=== PATIENT | female | born 1980 | race Caucasian/White ===

== ENCOUNTER 2024-02-05 15:39 | Emergency (ER) | payer OTHER, SELFPAY ==
--- NOTE | ~2024-02-05 | XR_ITS ---
EXAMINATION: XR CHEST CLINICAL INFORMATION: Chest pain and palpitations. COMPARISON: None available. TECHNIQUE: 2 views of the chest were obtained. FINDINGS: No significant abnormality is noted involving the heart, lungs, mediastinum, bony thorax or soft tissues. XR/XR chest 2V IMPRESSION: Unremarkable examination.
--- NOTE | 2024-02-05 15:42 | ECG_ITS ---
Test Reason : CHEST PAIN Blood Pressure : / mmHG Vent. Rate : 092 BPM Atrial Rate : 092 BPM P-R Int : 148 ms QRS Dur : 070 ms QT Int : 344 ms P-R-T Axes : 057 040 017 degrees QTc Int : 425 ms Normal sinus rhythm Normal ECG No previous ECGs available Referred By: Iesha Murray Electronically Signed By:Pardeep Shipman
--- NOTE | 2024-02-05 16:02 | ED.GENADULT ---
HPI - General Adult General Chief complaint: Chest Pain Stated complaint: fell at work, palpitation's, chest pain Time Seen by Provider: 02/05/24 21:36 History of Present Illness HPI narrative: The patient is a 44-year-old woman who says that she has been having palpitations for the last 4 days. She says a month ago she had similar palpitations but they resolved on their own. She says that when she experiences the palpitations she feels dizzy and lightheaded. No definite chest pain. No definite shortness of breath. No pain or swelling in her legs. No nausea or vomiting. Related Data Allergies Allergy/AdvReac Type Severity Reaction Status Date / Time No Known Allergies Allergy Verified 02/05/24 15:42 Review of Systems Review of Systems: Yes all other systems are reviewed and are negative [facility] Social History Social History Smoked in Last 30 Days: No Advance Directives: No Advance Directives Information Provided: No Physical Exam ED Vital Signs: Vital Signs - 24 hr 02/05/24 16:04 02/05/24 21:39 Temperature 98.6 F 98.2 F Pulse Rate 86 86 Respiratory Rate 18 19 Blood Pressure 143/77 H 147/77 H Pulse Oximetry 100 99 Oxygen Delivery Method Room Air Room Air BMI result Body Mass Index 29.3 Const Other: The patient is awake, alert, pleasant, cooperative. She does not appear in distress at all. Eyes Other: Pupils are round equal, conjunctivae are clear, extraocular movements intact Neck Other: No JVD Resp Effort & Inspection: normal respiratory effort Auscultation: clear to auscultation bilaterally Cardio Rate: regular rate Rhythm: regular rhythm Heart sounds: S1 normal heart sound present and S2 normal heart sound present GI Other: Abdomen is soft and nontender Skin Other: Skin is dry and unremarkable Neuro Other: The patient is awake, alert, pleasant, cooperative. She was interviewed with a senior staff consultant. Cranial nerves are grossly intact. She moves all 4 extremities symmetrically and appropriately. He seems grossly neurologically intact Extrem Other: No calf swelling or tenderness. No asymmetry. No edema. Course Course Course Narrative: RME performed by Iesha Murray PA-C. Patient is a 44 year old assigned female at presenting to the emergency department with palpitations. Detailed physical exam and review of systems are deferred to the denture laboratory technician. Labs, imaging, and swabs ordered. Patient placed back in the waiting room pending room availability and results. Medical Decision Making Medical Decision Making [facility] Narrative: The patient is a 44-year-old who presents with a complaint of palpitations. I interviewed her while she was on a gambling monitor. She had occasional PVCs and she indicated that palpitations she was experiencing corresponded to the PVCs seen on her gambling monitor. This seemed to be diagnostic of symptomatic palpitations related to occasional PVCs. The patient's workup was otherwise unremarkable. Her 12 lead EKG is normal. Chest x-ray is negative. Labs including a CBC, comprehensive metabolic panel and a troponin were done. Her troponin is undetectable. Her comprehensive metabolic panel shows mild transaminitis with an ALT of 82 and an AST of 33. Her bilirubin is normal. Her alk phos is normal. Her electrolytes and renal function are normal. The patient was reassured that the palpitations she is experiencing are related to PVCs and that PVCs are benign and not indicative of any acutely dangerous process or any imminent process of concern. She may be discharged. She does not currently have a PCP. She plans on following up in [place] at the [facility]. She was advised to follow up with this office for primary care and to follow up on her minor LFT abnormalities. She should return if worse. Lab Data 02/05/24 16:12 02/05/24 16:12 Labs: Lab Results 02/05/24 Range/Units 16:12 WBC 10.5 (4.8-10.8) X10*3/uL RBC 4.81 (4.20-5.50) X10*6/uL Hgb 14.4 (12.0-16.0) g/dl Hct 42.9 (37.0-47.0) % MCV 89.2 (80.0-98.0) fL MCH 29.9 (27.0-33.0) pg MCHC 33.6 (31.0-35.0) g/dl RDW 13.2 (11.0-16.0) % Plt Count 292 (160-400) X10*3/uL MPV 10.3 (9.4-12.3) fL Immature Gran % (Auto) 0.2 (0.0-0.4) % Neut % (Auto) 66.8 (45-73) % Lymph % (Auto) 25.6 (20-40) % [place] % (Auto) 6.5 (2-11) % Eos % (Auto) 0.7 (0-4) % Baso % (Auto) 0.2 (0-2) % Lymph # (Auto) 2.7 (1.2-4.9) X10*3/uL [place] # (Auto) 0.7 (0.1-1.2) X10*3/uL Eos # (Auto) 0.1 (0.0-0.4) X10*3/uL Baso # (Auto) 0.0 (0.0-0.2) X10*3/uL Abs Immat Gran (auto) 0.02 (0.00-0.03) X10*3/uL Absolute Neuts (auto) 7.0 (2.0-8.3) x10*3/uL Absolute Nucleated RBC 0.000 (0.0-0.012) X10*3/uL Nucleated RBC % (auto) 0.0 (0.0-0.2) /100WBC Sodium 141 (135-145) mmol/L Potassium 3.8 (3.3-5.1) mmol/L Chloride 107 (96-108) mmol/L Carbon Dioxide 26 (22-29) mmol/L Anion Gap 12 (12-20) BUN 8 L (9-16) mg/dL Creatinine 0.75 (0.5-1.4) mg/dL Estim Creat Clear Calc 90.2 Estimated GFR > 60 Random Glucose 91 (60-115) mg/dL Calcium 10.2 (8.4-10.2) mg/dL Magnesium 2.3 (1.6-2.6) mg/dL Total Bilirubin 0.4 (0.0-1.0) mg/dL AST 33 H (5-31) U/L ALT 82 H (0-31) U/L Alkaline Phosphatase 54 (39-117) U/L Troponin I High Sens < 2.7 (<3.5-17.0) ng/L Total Protein 8.1 H (6.5-8.0) g/dL Albumin 4.8 (3.5-5.0) g/dL TSH 1.02 (0.32-4.0) uIU/mL Beta HCG, Quant < 2 mIU/mL Influenza Type A (PCR) NEGATIVE (Negative) Influenza Type B (PCR) NEGATIVE (Negative) RSV RNA Qual (PCR) NEGATIVE (Negative) SARS-CoV-2 RNA (RT-PCR) NEGATIVE (Negative) Independent Interpretation I performed an independent interpretation of an: EKG Interpretation: EKG at 15:48 shows normal sinus rhythm at 92 beats per minute. It is a normal EKG. Discharge Plan Discharge Clinical Impression: Heart palpitations, Ventricular premature complexes, Abnormal transaminases Patient Disposition: Home, Self-Care Additional Instructions: The palpitations you are experiencing were clearly correlating with premature ventricular complexes on your gambling monitor. Premature ventricular complexes are unusual heartbeats that can feel very unpleasant but which are not dangerous. They do not indicate that you are at risk for any dangerous event. Please continue your efforts to get a new primary care provider. I have provided the name and contact number of one of the providers at the clinic in [place] that we spoke about. When you do get a regular doctor you should ask to have your liver tests repeated as there was a very minor abnormality on your liver tests today. Return to the emergency room if significantly worse. Referrals: Johann Torres NP [Nurse Practitioner] - (Palpitations, PVCs, minor transaminase abnormalities) Interventions: ED Discharge Assessment Last Done: 02/05/24 22:13 Discharge Date/Time: 02/05/24 22:17
[2024-02-05 16:04] VITALS: BP 143/77; PULSE 86; RESP 18; TEMP 37; O2SAT 100; BMI 29.3
[2024-02-05 16:17] LABS: MANUAL DIFF FLAG NO
[2024-02-05 16:18] LABS: Basophils Percent Auto 0.2 % (0-2); Eosinophils Absolute Auto 0.1 X10*3/uL (0.0-0.4); Eosinophils Percent Auto 0.7 % (0-4); Hematocrit 42.9 % (37.0-47.0); Hemoglobin 14.4 g/dl (12.0-16.0); Imm Gran Abs Auto 0.02 X10*3/uL (0.00-0.03); Imm Gran Pct Auto 0.2 % (0.0-0.4); Lymphocytes Absolute Auto 2.7 X10*3/uL (1.2-4.9); Lymphocytes Percent Auto 25.6 % (20-40); Mean Corpuscular HGB Conc 33.6 g/dl (31.0-35.0); Mean Corpuscular Hemoglobin 29.9 pg (27.0-33.0); Mean Corpuscular Volume 89.2 fL (80.0-98.0); Mean Platelet Volume 10.3 fL (9.4-12.3); Monocytes Absolute Auto 0.7 X10*3/uL (0.1-1.2); Monocytes Percent Auto 6.5 % (2-11); Neutrophils Percent Auto 66.8 % (45-73); Platelet Count 292 X10*3/uL (160-400); Red Blood Count 4.81 X10*6/uL (4.20-5.50); Red Cell Distribution Width 13.2 % (11.0-16.0); White Blood Count 10.5 X10*3/uL (4.8-10.8)
[2024-02-05 16:39] LABS: Troponin-I High Sensitivity < 2.7 ng/L (<3.5-17.0)
[2024-02-05 16:40] LABS: Alanine Aminotransferase 82 U/L (0-31); Albumin Level 4.8 g/dL (3.5-5.0); Alkaline Phosphatase 54 U/L (39-117); Anion Gap 12 (12-20); Aspartate Amino Transferase 33 U/L (5-31); Bilirubin Total 0.4 mg/dL (0.0-1.0); Blood Urea Nitrogen 8 mg/dL (9-16); Calcium 10.2 mg/dL (8.4-10.2); Carbon Dioxide 26 mmol/L (22-29); Chloride 107 mmol/L (96-108); Creatinine Clr Calc Pharmacy 90.2; Estimated Glomerular Filt Rate > 60; Glucose Random 91 mg/dL (60-115); Magnesium 2.3 mg/dL (1.6-2.6); Potassium 3.8 mmol/L (3.3-5.1); Sodium 141 mmol/L (135-145); Total Protein 8.1 g/dL (6.5-8.0)
[2024-02-05 16:53] LABS: HCG Quantitative < 2 mIU/mL; TSH reflex Free T4 1.02 uIU/mL (0.32-4.0)
[2024-02-05 16:54] LABS: Influenza A PCR NEGATIVE (Negative); Influenza B PCR NEGATIVE (Negative); Resp Syncy Virus RNA Qual PCR NEGATIVE (Negative); SARS COV2 PCR INHOUSE NEGATIVE (Negative)
[2024-02-05 21:39] VITALS: BP 147/77; PULSE 86; RESP 19; TEMP 36.8; O2SAT 99
== END 2024-02-05 22:17 | disposition home or self-care (01) ==
PROVIDERS: Physician Assistant Medical; Emergency Provider Emergency Medicine
DX: R00.2 Palpitations (principal); I49.3 Ventricular premature depolarization; R74.01 Elevation of levels of liver transaminase levels; Z11.52 Encounter for screening for COVID-19; Z20.828 Contact with and (suspected) exposure to other viral communicable diseases
CPT/HCPCS: 0241U; 71046; 80053; 83735; 84443; 84484; 84702; 85025; 93005; 99283; 99284

== ENCOUNTER → 2024-02-05 15:42 | Outpatient (BNV) | payer OTHER, SELFPAY | PROVIDERS: Emergency Provider Emergency Medicine; Visit Provider Internal Medicine Cardiovascular Disease | DX: R07.9 Chest pain, unspecified (principal) | CPT/HCPCS: 93010 ==

== ENCOUNTER → 2024-02-23 10:26 | Outpatient (REF) | payer OTHER, SELFPAY ==
--- NOTE | 2024-02-23 10:34 | HM_ITS ---
* Total monitoring time 2 days. * Underlying rhythm is sinus with an average rate of 74/Min. Range 48 to 145/Min. * Occasional ventricular ectopy with a burden of 0.75%. One couplet. * Rare supraventricular ectopy with minimal burden. * No significant pauses or AV blocks. * No patient markers or diary events. MTDD
== END ==
LOC: HO.CARD 10:26
PROVIDERS: Visit Provider Family Medicine
DX: I49.3 Ventricular premature depolarization (principal); R00.2 Palpitations
CPT/HCPCS: 93225

== ENCOUNTER → 2024-02-23 10:34 | Outpatient (BNV) | payer OTHER, SELFPAY | PROVIDERS: Visit Provider Internal Medicine | DX: I49.3 Ventricular premature depolarization (principal) | CPT/HCPCS: 93227 ==

== ENCOUNTER 2024-06-28 10:57 | Outpatient (REF) | payer OTHER, SELFPAY ==
--- NOTE | ~2024-06-28 | MM_ITS ---
EXAMINATION: MM SCREENING DIGITAL BREAST TOMOSYNTHESIS, BILATERAL CLINICAL INFORMATION: Screening. Asymptomatic. COMPARISON: Mammography: This is a baseline mammogram. TECHNIQUE: Digital breast tomosynthesis is performed in both the craniocaudal and mediolateral oblique views along with computer-aided detection (CAD). Synthesized 2D images are generated from the tomosynthesis. FINDINGS: There are scattered areas of fibroglandular density (ACR BI-RADS breast composition Category b). There are no significant masses, abnormal calcifications, or other abnormalities. MM/MM tomosynthesis screening BI IMPRESSION: No mammographic evidence of malignancy. ASSESSMENT: BI-RADS BI-RADS 1 - Negative RECOMMENDATION: Routine annual mammography screening. 1 year F/U This examination should not preclude the clinical evaluation of a suspicious palpable abnormality. This patient's information was entered into a reminder system with a target due date for their next mammogram.
== END 2024-06-28 10:58 | disposition home or self-care (01) ==
LOC: HO.MAMMO 10:57
PROVIDERS: PCP Nurse Practitioner; Visit Provider Nurse Practitioner
DX: Z12.31 Encounter for screening mammogram for malignant neoplasm of breast (principal)
CPT/HCPCS: 77063; 77067

== ENCOUNTER → 2024-06-28 11:15 | Outpatient (BNV) | payer OTHER, SELFPAY | PROVIDERS: PCP Nurse Practitioner; Visit Provider Radiology Diagnostic Radiology | DX: Z12.31 Encounter for screening mammogram for malignant neoplasm of breast (principal) | CPT/HCPCS: 77063; 77067 ==

== ENCOUNTER 2025-08-02 10:26 | Outpatient (AMB) | payer OTHER, SELFPAY ==
[2025-08-02 11:00] VITALS: BP 108/74; PULSE 78; TEMP 36.8; O2SAT 100; BMI 28.7
--- NOTE | 2025-08-02 11:00 | AM.OFFWIN_ITS ---
Intake Vital Signs 08/02/25 11:00 Height 5 ft 2 in Weight 157 lb BMI 28.7 BP 108/74 Blood Pressure Location Lt brachial Position Sitting Pulse 78 Pulse Source Pulse Oximeter Temp 98.3 F Temp Source Oral Pulse Oximetry (%) 100 Oxygen Delivery Method Room Air Intake Visit Reasons: EP-lt abd pain Intake Note: pt presents with Left abdominal pain, denies constipation/diarrhea/urinary tract symptoms Allergies No Known Allergies Allergy (Verified 08/02/25 11:03) Medication List - Last Reconciled 08/02/25 by Hollie Cartagena MD atorvastatin 10 mg PO DAILY metoprolol succinate ER 25 mg PO DAILY Do you need a note to return to daycare/school/sports/work: No HPI EP-lt abd pain HPI Details Interval History The patient is a 45-year-old female presenting with abdominal pain. Abdominal pain: - Initially started three weeks ago. - Described as coming and going with a c urrent pain scale of 7 out of 10. - Reports variations in pain associated with eating, where it worsens post- ingestion. Atorvastatin-associated symptoms: - Began atorvastatin therapy four days p rior to visit. - Noted that the abdominal pain predated the commencement of atorvastatin. Medical History: - Hyperlipidemia Medications: - Metoprolol: Management for an unspecif ied condition. - Atorvastatin: Prescribed four days ago for hyperlipidemia. Problem List - Abdominal pain epigastric mostly after eating - Hyperlipidemia Patient Instructions - Avoid tomato sauce, orange juice, or a ny citrus products. - Avoid spicy foods. - Eat bland foods such as pasta, potatoe s, and macaroni. - Take prescribed medication once daily on an empty stomach or between meals. Pantoprazole 40 mg - Avoid eating 4-5 hours before bedtime. - Follow-up with a primary care physicia n as advised. Review of Systems - General: No fever no chills - Neurological: No headaches no dizziness - Ear nose throat: No sore throat no hearing difficulty no ear pain - Cardiovascular: No syncope, no chest pain, no palpitations - Gastrointestinal: No nausea vomiting or diarrhea - Endocrine: No polyuria polydipsia no heat intolerance - Genitourinary: No dysuria , no blood in urine Physical Exam General: No acute distress HEENT: No acute findings Neck: Supple Respiratory system: Able to talk in full sentences, no audible wheeze Cardiovascular: S1-S2 regular in rate and rhythm Gastrointestinal: Abdominal exam is benign today Extremities: No new findings ALUMINUM SIDING MECHANIC: Alert awake oriented x3 motor sensory intact Skin: Normal turgor Physical Exam Vital Signs: Last Vital Signs Temp 98.3 F 08/02/25 11:00 Pulse 78 08/02/25 11:00 BP 108/74 08/02/25 11:00 Pulse Ox 100 08/02/25 11:00 Oxygen Delivery Method Room Air 08/02/25 11:00 BMI result Body Mass Index 28.7 Assessment & Plan Assessment & Plan (1) Acute upper abdominal pain: Code(s): R10.10 - Upper abdominal pain, unspecified (2) Lipid disorder: Code(s): E78.9 - Disorder of lipoprotein metabolism, unspecified Plan Interval History The patient is a 45-year-old female presenting with abdominal pain. Abdominal pain: - Initially started three weeks ago. - Described as coming and going with a current pain scale of 7 out of 10. - Reports variations in pain associated with eating, where it worsens post- ingestion. Atorvastatin-associated symptoms: - Began atorvastatin therapy four days prior to visit. - Noted that the abdominal pain predated the commencement of atorvastatin. Medical History: - Hyperlipidemia Medications: - Metoprolol: Management for an unspecified condition. - Atorvastatin: Prescribed four days ago for hyperlipidemia. Problem List - Abdominal pain epigastric mostly after eating - Hyperlipidemia Patient Instructions - Avoid tomato sauce, orange juice, or any citrus products. - Avoid spicy foods. - Eat bland foods such as pasta, potatoes, and macaroni. - Take prescribed medication once daily on an empty stomach or between meals. Pantoprazole 40 mg - Avoid eating 4-5 hours before bedtime. - Follow-up with a primary care physician as advised. Medications: New pantoprazole 40 mg PO DAILY 90 tabs 0RF Coding Level of Care Code Est Pt Level 4 (33163) Diagnoses Acute upper abdominal pain R10.10 Lipid disorder E78.9
== END 2025-08-02 11:35 | disposition home or self-care (01) ==
PROVIDERS: Visit Provider Internal Medicine
DX: R10.10 Upper abdominal pain, unspecified (principal); E78.9 Disorder of lipoprotein metabolism, unspecified

== ENCOUNTER 2025-08-21 12:30 | Outpatient (REF) | payer OTHER, SELFPAY ==
--- NOTE | ~2025-08-21 | US_ITS ---
EXAMINATION: US PELVIS CLINICAL INFORMATION: IUD check COMPARISON: None available. TECHNIQUE: Ultrasound of the pelvis is performed using both transabdominal and transvaginal transducers along with Doppler. Transvaginal imaging is performed due to inadequate visualization transabdominally. FINDINGS: Uterus: The uterus is anteverted and measures 6 x 3 x 4 cm. Endometrial thickness is not well demonstrated due to shadowing IUD obscuring the medial stripe. T-shaped IUD appears to be upper uterine cavity. The uterus is smooth in contour and has normal myometrial echogenicity. No visible fibroid. There is trace fluid within the endocervical canal. Adnexa: Both ovaries are visualized. There is normal color flow to the adnexa. There is no ovarian torsion. There is no pelvic ascites or fluid collection. Right ovary measures 2.3 x 1.9 x 1.8 cm. Left ovary measures 2.7 x 2.5 x 2.3 cm. US/US pelvic and transvaginal IMPRESSION: IUD appears to be positioned in the upper uterine canal. Electronically signed by: Jayce Amador MD 08/21/2025 01:51 PM EDT
== END 2025-08-21 12:31 | disposition home or self-care (01) ==
LOC: HO.HMGCX 12:30
PROVIDERS: PCP Nurse Practitioner; Visit Provider Nurse Practitioner
DX: T83.32XA Displacement of intrauterine contraceptive device, initial encounter (principal)
CPT/HCPCS: 76830; 76856

== ENCOUNTER → 2025-08-21 12:39 | Outpatient (BNV) | payer OTHER, SELFPAY | PROVIDERS: PCP Nurse Practitioner; Visit Provider Radiology Diagnostic Radiology | DX: Z30.431 Encounter for routine checking of intrauterine contraceptive device (principal) | CPT/HCPCS: 76830; 76856 ==